=== PATIENT | male | born 1990 ===

== ENCOUNTER 2017-09-20 18:45 | Inpatient (IN) | payer MEDICAID ==
[2017-09-20] MEDS ORDERED: Vancomycin 1gm in NS 250ml 1 GM/250 ML BAG IVPB STA (19:27)
[2017-09-20] MEDS ORDERED: Piperacill/Tazo 4.5gm in NS 4.5 GM/100 ML BAG IVPB STA (19:27)
[2017-09-20] MEDS ORDERED: Sodium Chloride 0.9% 1,000 ML IV STA ×2 (19:31→20:35)
--- NOTE | 2017-09-20 19:36 | ED PDOC ---
Arrival/HPI - General Chief Complaint: Abnormal Skin Integrity Time Seen by Provider: 09/20/17 19:27 Historian: Patient - History of Present Illness Narrative History of Present Illness (Text): 09/20/17 19:33 This 27 yo male with pmh DM type 1, on Lantus, presents to this ED c/o right 5th toe infection. Patient stated he developed a small wound on his toe x 9 days ago. Patient stated toe wound became infected x 5 days ago. Patient noted today his foot was swollen and redness. Patient denies fever, sob, cp, abdominal pain, streaking erythema, groin pain, recent travel, or abnormal gait. Time/Duration: Other (see hpi) Context: Home Past Medical History - Provider Review Nursing Documentation Reviewed: Yes - Cardiac Hx Cardiac Disorders: No - Pulmonary Hx Respiratory Disorders: No - Neurological Hx Neurological Disorder: No - HEENT Hx HEENT Disorder: No - Renal Hx Renal Disorder: No - Endocrine/Metabolic Hx Endocrine Disorders: Yes Hx Diabetes Mellitus Type 1: Yes - Hematological/Oncological Hx Blood Disorders: No - Integumentary Hx Dermatological Disorder: No - Musculoskeletal/Rheumatological Hx Musculoskeletal Disorders: No - Gastrointestinal Hx Gastrointestinal Disorders: No - Genitourinary/Gynecological Hx Genitourinary Disorders: No - Psychiatric Hx Psychophysiologic Disorder: No Hx Substance Use: No Family/Social History - Physician Review Nursing Documentation Reviewed: Yes Family/Social History: Other (noncontributory) Smoking Status: Never Smoked Hx Alcohol Use: No Hx Substance Use: No Allergies/Home Meds Allergies/Adverse Reactions: Allergies No Known Allergies Allergy (Verified 09/20/17 18:47) Home Medications: Home Meds Medication Instructions Recorded Confirmed Insulin Glargine, Recombina 30 unit SC DAILY 09/20/17 09/20/17 [Lantus] Insulin Glulisine [Apidra] 2 unit SC TID 09/20/17 09/20/17 Review of Systems - Review of Systems Constitutional: Normal. absent: Fatigue, Weight Change, Fevers Eyes: Normal ENT: Normal Respiratory: Normal Cardiovascular: Normal Gastrointestinal: Normal Genitourinary Male: Normal Musculoskeletal: Normal Skin: Ulcer (toe), Cellulitis Neurological: Normal Endocrine: Normal Hemo/Lymphatic: Normal Psychiatric: Normal Physical Exam Vital Signs Temp Pulse Resp BP Pulse Ox 09/20/17 18:47 98.5 F 113 H 17 133/94 H 99 Temperature: Afebrile Blood Pressure: Hypertensive Pulse: Tachycardic Respiratory Rate: Normal Appearance: Positive for: Well-Appearing, Non-Toxic, Comfortable Pain Distress: None Mental Status: Positive for: Alert and Oriented X 3 - Systems Exam Head: Present: Atraumatic, Normocephalic Pupils: Present: PERRL Extroacular Muscles: Present: EOMI Conjunctiva: Present: Normal Mouth: Present: Moist Mucous Membranes Neck: Present: Normal Range of Motion Respiratory/Chest: Present: Clear to Auscultation, Good Air Exchange. No: Respiratory Distress, Accessory Muscle Use Cardiovascular: Present: Regular Rate and Rhythm, Normal S1, S2. No: Murmurs Abdomen: Present: Normal Bowel Sounds. No: Tenderness, Distention, Peritoneal Signs Back: Present: Normal Inspection Upper Extremity: Present: Normal Inspection. No: Cyanosis, Edema Lower Extremity: Present: NORMAL PULSES, Normal ROM, Tenderness, Swelling, Erythema, Temperature Abnormalties, Neurovascularly Intact, Capillary Refill < 2 s, Other ((+) right 5th toe diabetic infected ulcer, with right foot cellulitis and swelling). No: Edema, CALF TENDERNESS Neurological: Present: GCS=15, CN II-XII Intact, Speech Normal, Motor Func Grossly Intact, Normal Sensory Function, Normal Cerebellar Funct, Gait Normal, Memory Normal Skin: Present: Warm, Dry, Normal Color. No: Rashes Lymphatic: No: Inguinal Adenopathy Psychiatric: Present: Alert, Oriented x 3, Normal Insight, Normal Concentration Medical Decision Making ED Course and Treatment: 09/20/17 20:27 Dr. Gomez spoke with district medical examiner regarding patient complain, and admission for cellulitis. 09/20/17 20:40 Dr. Gomez spoke with Dr. Curry regarding cellulitis of right foot, with diabetic ulcer, possible osteomyelitis. Dr. Gomez stated Dr. Curry agreed with plan for admission. Re-evaluation Time: 20:46 Reassessment Condition: Re-examined, Improving,but remains with symptoms - Lab Interpretations Lab Results: 09/20/17 19:58 09/20/17 19:58 Lab Results 09/20/17 19:58: Sodium 138, Chloride 98, Potassium 4.5, Carbon Dioxide 32, Anion Gap 13, BUN 15, Creatinine 0.6 L, Est GFR ( Amer) > 60, Est GFR ( Non-Af Amer) > 60, Random Glucose 360 H*, Calcium 10.3, Phosphorus 3.6, Magnesium 2.0, Total Bilirubin 0.4, AST 20, ALT 32, Alkaline Phosphatase 145 H, Total Protein 7.9, Albumin 4.3, Globulin 3.5, Albumin/Globulin Ratio 1.2 09/20/17 19:58: pO2 29 L, VBG pH 7.34, VBG pCO2 60.0, VBG HCO3 32.4 H, VBG Total CO2 34.2 H, VBG O2 Sat (Calc) 64.7, VBG Base Excess 4.8 H, VBG Potassium 4.5, Sodium 136.0, Chloride 99.0, Glucose 367 H, Lactate 0.7, FiO2 21.0, Venous Blood Potassium 4.5 09/20/17 19:58: PT 10.1, INR 0.89 L, APTT 36.8 H 09/20/17 19:58: WBC 8.7, RBC 4.98, Hgb 14.3, Hct 41.7 L, MCV 83.7, MCH 28.7, MCHC 34.3, RDW 12.4, Plt Count 312, MPV 10.0, Gran % 57.9, Lymph % (Auto) 33.6, [place] % (Auto) 6.0, Eos % (Auto) 1.8, Baso % (Auto) 0.7, Gran # 5.02, Lymph # ( Auto) 2.9, [place] # (Auto) 0.5, Eos # (Auto) 0.2, Baso # (Auto) 0.06, ESR Pending I have reviewed the lab results: Yes Interpretation: Abnormal lab values (hyperglycemia.) - RAD Interpretation Narrative RAD Interpretations (Text): 09/20/17 20:46 Foot x-rays: soft tissue swelling. No Fx. or FB. no lytic bone lesion Radiology Orders: 09/20/17 19:32 FOOT RIGHT 5TH DIGIT (TOE) [RAD] Stat - Medication Orders Current Medication Orders: Sodium Chloride (Sodium Chloride 0.9%) 1,000 mls @ 999 mls/hr IV .Q1H1M STA Stop: 09/20/17 21:35 Discontinued Medications Sodium Chloride (Sodium Chloride 0.9%) 1,000 mls @ 999 mls/hr IV .Q1H1M STA Stop: 09/20/17 20:31 Last Admin: 09/20/17 20:01 Dose: 999 mls/hr eMAR Start Stop Document 09/20/17 20:01 AD (Rec: 09/20/17 20:01 AD [id number]) Intravenous Solution Start Date 09/20/17 Start Time 20:01 Vancomycin HCl (Vancomycin 1gm) 1 gm in 250 mls @ 167 mls/hr IVPB STAT STA PRN Reason: Protocol Stop: 09/20/17 20:56 Piperacillin Sod/Tazobactam Sod (Zosyn 4.5 Gm In Ns 100ml) 4.5 gm in 100 mls @ 200 mls/hr IVPB STAT STA PRN Reason: Protocol Stop: 09/20/17 19:56 Last Admin: 09/20/17 19:57 Dose: 200 mls/hr eMAR Start Stop Document 09/20/17 19:57 AD (Rec: 09/20/17 20:01 AD [id number]) Intravenous Solution Start Date 09/20/17 Start Time 20:01 Disposition/Present on Arrival - Present on Arrival Any Indicators Present on Arrival: No History of DVT/PE: No History of Uncontrolled Diabetes: Yes Urinary Catheter: No History of Decub. Ulcer: No History Surgical Site Infection Following: None - Disposition Have Diagnosis and Disposition been Completed?: Yes Diagnosis: Diabetic ulcer of toe of right foot, Cellulitis in diabetic foot Disposition: HOSPITALIZED Disposition Time: 20:48 Patient Plan: Admission Patient Problems: Current Active Problems Problem Status Onset Cellulitis in diabetic foot Acute Diabetic ulcer of toe of right foot Acute Condition: STABLE
[2017-09-20 20:10] LABS: BASO # 0.06 K/mm3 (0.0-2.0); BASO % 0.7 % (0.0-3.0); EOS # 0.2 (0.0-0.7); EOS % 1.8 % (1.5-5.0); GRAN # 5.02 (1.4-6.5); GRAN % 57.9 % (50.0-68.0); HEMOGLOBIN 14.3 g/dL (14.0-18.0); LYMPH # 2.9 (1.2-3.4); LYMPH % 33.6 % (22.0-35.0); MEAN CELL VOLUME 83.7 fl (80.0-105.0); MEAN CORPUSCULAR HEMOGLOBIN 28.7 pg (25.0-35.0); MEAN CORPUSCULAR HGB CONC 34.3 g/dl (31.0-37.0); MONO # 0.5 (0.1-0.6); RBC 4.98 10^6/uL (3.5-6.1); RED CELL DISTRIBUTION WIDTH 12.4 % (11.5-14.5); WHITE BLOOD COUNT 8.7 10^3/ul (4.5-11.0)
[2017-09-20 20:12] LABS: VENOUS BLOOD GAS BASE EXCESS 4.8 mmol/L (0.0-2.0); VENOUS BLOOD GAS PO2 29 mm/Hg (30-55); VENOUS BLOOD PH 7.34 (7.32-7.43)
[2017-09-20 20:23] LABS: INR 0.89 (0.93-1.08); PARTIAL THROMBOPLASTIN TIME 36.8 Seconds (25.1-36.5); PROTHROMBIN TIME 10.1 SECONDS (9.4-12.5)
[2017-09-20 20:30] LABS: ALB/GLOB RATIO 1.2 (1.1-1.8); ALBUMIN 4.3 g/dL (3.0-4.8); ALT/SGPT 32 U/L (7-56); AST/SGOT 20 U/L (17-59); BLOOD UREA NITROGEN 15 mg/dL (7-21); CALCIUM 10.3 mg/dL (8.4-10.5); GFR AFRICAN-AMERICAN > 60; GFR NON-AFRICAN AMERICAN > 60
[2017-09-20] MEDS ORDERED: Sodium Chloride 0.9% 1,000 ML IV SCH (21:15)
[2017-09-20] MEDS ORDERED: Insulin Regular 1 UNITS/0.01 ML ML SC STA (21:19)
[2017-09-20] MEDS: Insulin Lispro (humaLOG) MEDIUM Coverage SC SCH (23:38)
--- NOTE | 2017-09-20 23:50 | CP.PCM.HP ---
<Bishop Angel - Last Filed: 09/21/17 00:29> History of Present Illness - History of Present Illness History of Present Illness: Bishop Angel PGY1 H&P Note for Hospitalist Service cc: R 5th toe ulcer Mr. Smith is a 27yo M with a PMH of DM1 who presents to ED with a swollen and tender right 5th toe x5 days. Translation was provided by ED staff. 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 He is complaining of tenderness and tingling in the leg but denies any numbness. He denies fevers/chills, chest pain, shortness of breath, immobility, abdominal pain, groin pain. 12-pt ROS was reviewed and is otherwise unremarkable. 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 Present on Admission - Present on Admission Any Indicators Present on Admission: No Review of Systems - Review of Systems All systems: reviewed and no additional remarkable complaints except (as per HPI ) Past Patient History - Past Medical History & Family History Past Medical History?: Yes Past Family History: Reviewed and not pertinent - Past Social History Smoking Status: Never Smoked Alcohol: None Drugs: Denies - CARDIAC Hx Cardiac Disorders: No - PULMONARY Hx Respiratory Disorders: No - NEUROLOGICAL Hx Neurological Disorder: No - HEENT Hx HEENT Problems: No - RENAL Hx Chronic Kidney Disease: No - ENDOCRINE/METABOLIC Hx Endocrine Disorders: Yes Hx Diabetes Mellitus Type 1: Yes - HEMATOLOGICAL/ONCOLOGICAL Hx Blood Disorders: No - INTEGUMENTARY Hx Dermatological Problems: No - MUSCULOSKELETAL/RHEUMATOLOGICAL Hx Musculoskeletal Disorders: No - GASTROINTESTINAL Hx Gastrointestinal Disorders: No - GENITOURINARY/GYNECOLOGICAL Hx Genitourinary Disorders: No - PSYCHIATRIC Hx Psychophysiologic Disorder: No Hx Substance Use: No - SURGICAL HISTORY Hx Surgeries: No Meds Allergies/Adverse Reactions: Allergies Allergy/AdvReac Type Severity Reaction Status Date / Time No Known Allergies Allergy Verified 09/20/17 18:47 Physical Exam - Constitutional Appears: Well, Non-toxic, No Acute Distress - Head Exam Head Exam: ATRAUMATIC, NORMAL INSPECTION - Eye Exam Eye Exam: EOMI, Normal appearance, PERRL - ENT Exam ENT Exam: Mucous Membranes Moist - Neck Exam Neck exam: Positive for: Normal Inspection - Respiratory Exam Respiratory Exam: Clear to Auscultation Bilateral, NORMAL BREATHING PATTERN. absent: Rales, Rhonchi, Wheezes - Cardiovascular Exam Cardiovascular Exam: Tachycardia, REGULAR RHYTHM, +S1, +S2 - GI/Abdominal Exam GI & Abdominal Exam: Normal Bowel Sounds, Soft. absent: Distended, Tenderness - Extremities Exam Extremities exam: Positive for: full ROM, pedal edema (right sided 1+), tenderness (RLE), pedal pulses present Additional comments: right toe lateral ulcer no pus noted - Back Exam Back exam: NORMAL INSPECTION - Neurological Exam Neurological exam: Alert, Oriented x3 - Psychiatric Exam Psychiatric exam: Normal Affect, Normal Mood - Skin Skin Exam: Normal Color, Warm Results - Vital Signs Recent Vital Signs: Last Vital Signs Temp 98.5 F 09/20/17 18:47 Pulse 103 H 09/20/17 21:00 Resp 18 09/20/17 21:00 BP 132/82 09/20/17 21:00 Pulse Ox 100 09/20/17 21:00 - Labs Result Diagrams: 09/20/17 19:58 09/20/17 19:58 Assessment & Plan - Assessment and Plan (Free Text) Assessment: 27yo M with a PMH of DM1 who presents to ED with a swollen and tender right 5th toe x5 days, likely 2/2 cellulitis but need to r/o osteomyelitis. Plan: 1. Cellulitis of 5th right toe, r/o osteomyelitis - tachycardia noted but no other SIRS criteria noted - XR done in ED and as read by me shows disruption of normal soft tissue contour - CRP and ESR ordered - blood, wound and urine cultures ordered - 2L NS given, continue @ 100cc/hr - vanc and zosyn given in ED and will be continued - tylenol prn fevers - motrin prn pain - MV, vit C and zinc ordered - ID consulted, recs appreciated - Podiatry consulted, recs appreciated - MRI of R foot ordered - monitor VS, CBC and CMP daily 2. Hx DM1 - hypergylcemia noted - A1C ordered - Levemir 30u daily ordered - ISS ACHS - Accuchecks ACHS - HHD w/ carb consistency PTX/ Heparin for GI/DVT ppx HHD Patient was seen, examined and discussed with attending, Dr. Patricio Angel PGY1 <Isrrael Curry - Last Filed: 09/21/17 02:59> Results - Vital Signs Recent Vital Signs: Last Vital Signs Temp 97.4 F L 09/20/17 23:43 Pulse 101 H 09/20/17 23:43 Resp 20 09/20/17 23:43 BP 145/103 H 09/20/17 23:43 Pulse Ox 100 09/20/17 21:00 - Labs Result Diagrams: 09/20/17 19:58 09/20/17 19:58 Labs: Laboratory Results - last 24 hr 09/20/17 23:25 POC Glucose (mg/dL) 256 H Attending/Attestation - Attestation I have personally seen and examined this patient.: Yes I have fully participated in the care of the patient.: Yes I have reviewed all pertinent clinical information: Yes Notes (Text): 09/21/17 02:58 Patient was seen when he was in 571-02. Agree with history, physical examination ,assessment and plan.
[2017-09-21 00:14] VITALS: RESP 20; BMI 27.4
[2017-09-21] MEDS: Piperacillin/Tazobact 3.375 gm 100 ML IVPB SCH ×2 (00:30→05:39)
[2017-09-21] MEDS ORDERED: Pantoprazole 40 mg EC Tab PO SCH (06:00)
[2017-09-21 07:37] LABS: HEMOGLOBIN 12.2 g/dL (14.0-18.0); MEAN CELL VOLUME 84.2 fl (80.0-105.0); MEAN CORPUSCULAR HEMOGLOBIN 27.9 pg (25.0-35.0); MEAN CORPUSCULAR HGB CONC 33.2 g/dl (31.0-37.0); MEAN PLATELET VOLUME 9.8 fl (7.0-11.0); RBC 4.37 10^6/uL (3.5-6.1); RED CELL DISTRIBUTION WIDTH 12.3 % (11.5-14.5); WHITE BLOOD COUNT 6.6 10^3/ul (4.5-11.0)
[2017-09-21 07:58] LABS: ALBUMIN 3.3 g/dL (3.0-4.8); ALT/SGPT 24 U/L (7-56); AST/SGOT 21 U/L (17-59); BLOOD UREA NITROGEN 11 mg/dL (7-21); CALCIUM 8.9 mg/dL (8.4-10.5); GFR AFRICAN-AMERICAN > 60; GFR NON-AFRICAN AMERICAN > 60
[2017-09-21] MEDS ORDERED: Multivitamin With Minerals Tab PO SCH (08:00)
[2017-09-21] MEDS: Insulin Lispro (humaLOG) MEDIUM Coverage SC SCH ×2 (08:34→13:37)
[2017-09-21 08:38] VITALS: O2SAT 98
--- NOTE | 2017-09-21 09:16 | RAD ---
PROCEDURE: Right Foot Radiographs. HISTORY: pain r/o osteo COMPARISON: None. FINDINGS: BONES: Normal. No fracture. JOINTS: Normal. SOFT TISSUES: Normal. OTHER FINDINGS: None. IMPRESSION: Normal right foot radiographs.
[2017-09-21] MEDS ORDERED: Vancomycin 1gm in NS 250ml 1 GM/250 ML BAG IVPB SCH (10:00)
[2017-09-21] MEDS ORDERED: Insulin Detemir 100 units/ml Vial (Levemir) SC SCH (10:00)
[2017-09-21] MEDS ORDERED: Piperacillin/Tazobact 3.375 gm 100 ML IVPB SCH (12:00)
--- NOTE | 2017-09-21 12:55 | CP.PCM.CON ---
<AllenJanene - Last Filed: 09/21/17 13:50> History of Present Illness - History of Present Illness History of Present Illness: Podiatry Consult Note 27 y/o male with PMHx of diabetes (diagnosed 2008) seen at bedside with attending Dr. Leslie for right foot 5th toe ulceration. Pt states he has noticed the toe swelling up more over the last week. Denies noting any pus drainage from the toe. States he has had diabetes for 9 years and checks his blood sugar once a day. States his sugars run around 100s. Denies any history of podiatric complications or foot ulcerations. Denies any trauma to the right foot. Admits to mild tingling in the lower extremities; denies numbness or burning. PSHx: denies All: NKDA Social Hx: denies EtOH, cigarette or illicit drug use Meds: Insulin Lantus Review of Systems - Review of Systems All systems: reviewed and no additional remarkable complaints except (per HPI) Past Patient History - Past Medical History & Family History Past Medical History?: Yes Past Family History: Reviewed and not pertinent - Past Social History Smoking Status: Never Smoked Alcohol: None Drugs: Denies - CARDIAC Hx Cardiac Disorders: No - PULMONARY Hx Respiratory Disorders: No - NEUROLOGICAL Hx Neurological Disorder: No - HEENT Hx HEENT Problems: No - RENAL Hx Chronic Kidney Disease: No - ENDOCRINE/METABOLIC Hx Endocrine Disorders: Yes Hx Diabetes Mellitus Type 1: Yes - HEMATOLOGICAL/ONCOLOGICAL Hx Blood Disorders: No - INTEGUMENTARY Hx Dermatological Problems: No - MUSCULOSKELETAL/RHEUMATOLOGICAL Hx Musculoskeletal Disorders: No - GASTROINTESTINAL Hx Gastrointestinal Disorders: No - GENITOURINARY/GYNECOLOGICAL Hx Genitourinary Disorders: No - PSYCHIATRIC Hx Psychophysiologic Disorder: No Hx Substance Use: No - SURGICAL HISTORY Hx Surgeries: No Meds Allergies/Adverse Reactions: Allergies Allergy/AdvReac Type Severity Reaction Status Date / Time No Known Allergies Allergy Verified 09/20/17 18:47 - Medications Medications: Current Medications Acetaminophen (Tylenol 325mg Tab) 650 mg PO Q4 PRN PRN Reason: Fever >100.4 F Ascorbic Acid (Vitamin C 500 Mg Tab) 500 mg PO DAILY [facility] Last Admin: 09/21/17 10:01 Dose: 500 mg Heparin Sodium (Porcine) (Heparin) 5,000 units SC Q12 MIKAYLA PRN Reason: Protocol Last Admin: 09/21/17 09:59 Dose: 5,000 units Sodium Chloride (Sodium Chloride 0.9%) 1,000 mls @ 100 mls/hr IV .Q10H [facility] Last Admin: 09/21/17 01:33 Dose: 100 mls/hr Vancomycin HCl (Vancomycin 1gm) 1 gm in 250 mls @ 167 mls/hr IVPB Q12 MIKAYLA PRN Reason: Protocol Last Admin: 09/21/17 10:01 Dose: 167 mls/hr Piperacillin Sod/Tazobactam Sod (Zosyn 3.375 In Ns 100ml) 100 mls @ 200 mls/hr IVPB Q6 MIKAYLA PRN Reason: Protocol Stop: 09/28/17 12:01 Ibuprofen (Motrin Tab) 400 mg PO Q6H PRN PRN Reason: Pain, Mild (1-3) Insulin Detemir (Levemir) 30 unit SC DAILY [facility] Last Admin: 09/21/17 10:00 Dose: 30 unit Insulin Human Lispro (Humalog Med) 0 units SC ACHS [facility] PRN Reason: Protocol Last Admin: 09/21/17 08:34 Dose: 3 units Multivitamins/Minerals (Therapeutic-M Tab) 1 tab PO 0800 [facility] Last Admin: 09/21/17 10:01 Dose: 1 tab Pantoprazole Sodium (Protonix Ec Tab) 40 mg PO 0600 [facility] Last Admin: 09/21/17 05:40 Dose: 40 mg Zinc Sulfate (Zinc Sulfate 220 Mg Cap) 220 mg PO DAILY [facility] Last Admin: 09/21/17 10:02 Dose: 220 mg Physical Exam - Constitutional Appears: Well, Non-toxic, No Acute Distress - Extremities Exam Additional comments: Lower extremity focused examination: Vasc: DP/PT pulses palpable 2/4 B/L. Temperature gradient warm to cool. CFT < 3 sec x 9 digits; unable to assess to right foot 5th digit due to edema with ulceration. Localized edema noted to right foot 5th toe Derm: Circular 0.7cm diameter ulceration noted to dorsum of right foot 5th digit with mixed fibrogranular wound base. Nohemy wound erythema noted. No malodor , no purulence expressed, no fluctuance. Neuro: Protective sensation mildly diminished Ortho: No tenderness to palpation of right foot 5th toe at ulceration site - Neurological Exam Neurological exam: Alert, Oriented x3 - Psychiatric Exam Psychiatric exam: Normal Affect, Normal Mood Results - Vital Signs Recent Vital Signs: Last Vital Signs Temp 97.9 F 09/21/17 07:30 Pulse 103 H 09/21/17 07:30 Resp 20 09/21/17 07:30 BP 145/97 H 09/21/17 07:30 Pulse Ox 98 09/21/17 07:30 - Labs Result Diagrams: 09/21/17 06:30 09/21/17 06:30 Labs: Laboratory Results - last 24 hr 09/20/17 09/21/17 09/21/17 23:25 06:30 06:30 WBC 6.6 D RBC 4.37 Hgb 12.2 L D Hct 36.8 L MCV 84.2 MCH 27.9 MCHC 33.2 RDW 12.3 Plt Count 271 MPV 9.8 Sodium 136 Potassium 3.7 Chloride 101 Carbon Dioxide 29 Anion Gap 10 BUN 11 Creatinine 0.6 L Est GFR ( Amer) > 60 Est GFR (Non-Af Amer) > 60 POC Glucose (mg/dL) 256 H Random Glucose 252 H Calcium 8.9 Total Bilirubin 0.5 AST 21 ALT 24 Alkaline Phosphatase 104 Total Protein 6.5 Albumin 3.3 Globulin 3.2 Albumin/Globulin Ratio 1.0 L 09/21/17 06:33 WBC RBC Hgb Hct MCV MCH MCHC RDW Plt Count MPV Sodium Potassium Chloride Carbon Dioxide Anion Gap BUN Creatinine Est GFR ( Amer) Est GFR (Non-Af Amer) POC Glucose (mg/dL) 238 H Random Glucose Calcium Total Bilirubin AST ALT Alkaline Phosphatase Total Protein Albumin Globulin Albumin/Globulin Ratio Assessment & Plan - Assessment and Plan (Free Text) Assessment: 27 y/o diabetic male with right foot diabetic ulcer to 5th toe Plan: Pt seen and evaluated with attending Dr. Leslie Labs and vitals reviewed- afebrile, WBC 6.6, ESR 36 X-rays of R foot are WNL, no acute osseous findings MRI of RLE (+) for marrow edema in all phalanges of right foot 5th toe; probably osteomyelitis of right foot 5th toe Wound cleansed with saline and dressed with xeroform and DSD Pt allowed PWB to R heel at this time; advised not to bear weight or put pressure down on right forefoot Discussed with patient MRI results, giving him option of 6 weeks of IV abx vs surgical intervention Pt to consider options and make final decision over the weekend Pt added on for OR on Sunday 7:30am for right foot 5th digit amputation Podiatry will continue to follow patient while in house Thank you for this consult <Mario Leslie - Last Filed: 09/21/17 15:05> Meds - Medications Medications: Current Medications Acetaminophen (Tylenol 325mg Tab) 650 mg PO Q4 PRN PRN Reason: Fever >100.4 F Ascorbic Acid (Vitamin C 500 Mg Tab) 500 mg PO DAILY [facility] Last Admin: 09/21/17 10:01 Dose: 500 mg Heparin Sodium (Porcine) (Heparin) 5,000 units SC Q12 MIKAYLA PRN Reason: Protocol Last Admin: 09/21/17 09:59 Dose: 5,000 units Sodium Chloride (Sodium Chloride 0.9%) 1,000 mls @ 100 mls/hr IV .Q10H [facility] Last Admin: 09/21/17 01:33 Dose: 100 mls/hr Vancomycin HCl (Vancomycin 1gm) 1 gm in 250 mls @ 167 mls/hr IVPB Q12 MIKAYLA PRN Reason: Protocol Last Admin: 09/21/17 10:01 Dose: 167 mls/hr Piperacillin Sod/Tazobactam Sod (Zosyn 3.375 In Ns 100ml) 100 mls @ 200 mls/hr IVPB Q6 MIKAYLA PRN Reason: Protocol Stop: 09/28/17 12:01 Last Admin: 09/21/17 13:39 Dose: 200 mls/hr Ibuprofen (Motrin Tab) 400 mg PO Q6H PRN PRN Reason: Pain, Mild (1-3) Insulin Detemir (Levemir) 30 unit SC DAILY [facility] Last Admin: 09/21/17 10:00 Dose: 30 unit Insulin Human Lispro (Humalog Med) 0 units SC ACHS [facility] PRN Reason: Protocol Last Admin: 09/21/17 13:37 Dose: Not Given Multivitamins/Minerals (Therapeutic-M Tab) 1 tab PO 0800 [facility] Last Admin: 09/21/17 10:01 Dose: 1 tab Pantoprazole Sodium (Protonix Ec Tab) 40 mg PO 0600 [facility] Last Admin: 09/21/17 05:40 Dose: 40 mg Zinc Sulfate (Zinc Sulfate 220 Mg Cap) 220 mg PO DAILY [facility] Last Admin: 09/21/17 10:02 Dose: 220 mg Results - Vital Signs Recent Vital Signs: Last Vital Signs Temp 97.9 F 09/21/17 07:30 Pulse 103 H 09/21/17 07:30 Resp 20 09/21/17 07:30 BP 145/97 H 09/21/17 07:30 Pulse Ox 98 09/21/17 07:30 - Labs Result Diagrams: 09/21/17 06:30 09/21/17 06:30 Labs: Laboratory Results - last 24 hr 09/20/17 09/21/17 09/21/17 23:25 06:30 06:30 WBC 6.6 D RBC 4.37 Hgb 12.2 L D Hct 36.8 L MCV 84.2 MCH 27.9 MCHC 33.2 RDW 12.3 Plt Count 271 MPV 9.8 Sodium 136 Potassium 3.7 Chloride 101 Carbon Dioxide 29 Anion Gap 10 BUN 11 Creatinine 0.6 L Est GFR ( Amer) > 60 Est GFR (Non-Af Amer) > 60 POC Glucose (mg/dL) 256 H Random Glucose 252 H Calcium 8.9 Total Bilirubin 0.5 AST 21 ALT 24 Alkaline Phosphatase 104 Total Protein 6.5 Albumin 3.3 Globulin 3.2 Albumin/Globulin Ratio 1.0 L 09/21/17 06:33 WBC RBC Hgb Hct MCV MCH MCHC RDW Plt Count MPV Sodium Potassium Chloride Carbon Dioxide Anion Gap BUN Creatinine Est GFR ( Amer) Est GFR (Non-Af Amer) POC Glucose (mg/dL) 238 H Random Glucose Calcium Total Bilirubin AST ALT Alkaline Phosphatase Total Protein Albumin Globulin Albumin/Globulin Ratio Attending/Attestation - Attestation I have personally seen and examined this patient.: Yes I have fully participated in the care of the patient.: Yes I have reviewed all pertinent clinical information: Yes
--- NOTE | 2017-09-21 13:05 | MRI ---
PROCEDURE: MRI of the right foot without contrast HISTORY: r/o osteomyelitis of 5th toe COMPARISON: TECHNIQUE: MRI of the right foot was performed in multiple planes using multiple pulse sequences. FINDINGS: There is marrow edema in the 5th toe involving the proximal middle and distal phalanx. The finding is suspicious for osteomyelitis. There is also surrounding soft tissue swelling and subcutaneous edema. There is a large amount of subcutaneous edema over the dorsum of the foot IMPRESSION: Probable osteomyelitis of the 5th toe
--- NOTE | 2017-09-21 13:19 | CP.PCM.PN ---
<WinifredLeon Rae - Last Filed: 09/21/17 13:11> Subjective - Date & Time of Evaluation Date of Evaluation: 09/21/17 Time of Evaluation: 13:11 - Subjective Subjective: Medicine progress note: Dr. Connelly Patient seen and examined at bedside. Ms. Haleigh RAMOS kindly providing translation at bedside. No new complaints at this time. Patient denies significant pain. Objective - Vital Signs/Intake and Output Vital Signs (last 24 hours): Temp Pulse Resp BP Pulse Ox 97.9 F 103 H 20 145/97 H 98 09/21/17 07:30 09/21/17 07:30 09/21/17 07:30 09/21/17 07:30 09/21/17 07:30 Intake and Output: 09/21/17 09/21/17 06:59 18:59 Intake Total 0 Output Total 0 Balance 0 - Medications Medications: Current Medications Acetaminophen (Tylenol 325mg Tab) 650 mg PO Q4 PRN PRN Reason: Fever >100.4 F Ascorbic Acid (Vitamin C 500 Mg Tab) 500 mg PO DAILY [facility] Last Admin: 09/21/17 10:01 Dose: 500 mg Heparin Sodium (Porcine) (Heparin) 5,000 units SC Q12 MIKAYLA PRN Reason: Protocol Last Admin: 09/21/17 09:59 Dose: 5,000 units Sodium Chloride (Sodium Chloride 0.9%) 1,000 mls @ 100 mls/hr IV .Q10H [facility] Last Admin: 09/21/17 01:33 Dose: 100 mls/hr Vancomycin HCl (Vancomycin 1gm) 1 gm in 250 mls @ 167 mls/hr IVPB Q12 MIKAYLA PRN Reason: Protocol Last Admin: 09/21/17 10:01 Dose: 167 mls/hr Piperacillin Sod/Tazobactam Sod (Zosyn 3.375 In Ns 100ml) 100 mls @ 200 mls/hr IVPB Q6 MIKAYLA PRN Reason: Protocol Stop: 09/28/17 12:01 Ibuprofen (Motrin Tab) 400 mg PO Q6H PRN PRN Reason: Pain, Mild (1-3) Insulin Detemir (Levemir) 30 unit SC DAILY [facility] Last Admin: 09/21/17 10:00 Dose: 30 unit Insulin Human Lispro (Humalog Med) 0 units SC ACHS MIKAYLA PRN Reason: Protocol Last Admin: 09/21/17 08:34 Dose: 3 units Multivitamins/Minerals (Therapeutic-M Tab) 1 tab PO 0800 [facility] Last Admin: 09/21/17 10:01 Dose: 1 tab Pantoprazole Sodium (Protonix Ec Tab) 40 mg PO 0600 [facility] Last Admin: 09/21/17 05:40 Dose: 40 mg Zinc Sulfate (Zinc Sulfate 220 Mg Cap) 220 mg PO DAILY [facility] Last Admin: 09/21/17 10:02 Dose: 220 mg - Labs Labs: 09/21/17 06:30 09/21/17 06:30 PT 10.1 SECONDS (9.4-12.5) 09/20/17 19:58 INR 0.89 (0.93-1.08) L 09/20/17 19:58 APTT 36.8 Seconds (25.1-36.5) H 09/20/17 19:58 - Constitutional Appears: Well - Head Exam Head Exam: ATRAUMATIC, NORMAL INSPECTION, NORMOCEPHALIC - Eye Exam Eye Exam: EOMI, Normal appearance, PERRL Pupil Exam: NORMAL ACCOMODATION, PERRL - ENT Exam ENT Exam: Mucous Membranes Moist, Normal Exam - Neck Exam Neck Exam: Full ROM, Normal Inspection. absent: Lymphadenopathy - Respiratory Exam Respiratory Exam: Clear to Ausculation Bilateral, NORMAL BREATHING PATTERN - Cardiovascular Exam Cardiovascular Exam: REGULAR RHYTHM, +S1, +S2. absent: Murmur - GI/Abdominal Exam GI & Abdominal Exam: Soft, Normal Bowel Sounds. absent: Tenderness - Extremities Exam Extremities Exam: Full ROM, Normal Capillary Refill, Normal Inspection. absent : Joint Swelling, Pedal Edema - Back Exam Back Exam: NORMAL INSPECTION, vertebral tenderness - Neurological Exam Neurological Exam: Alert, Awake, CN II-XII Intact, Normal Gait, Oriented x3 - Psychiatric Exam Psychiatric exam: Normal Affect, Normal Mood - Skin Skin Exam: Dry, Intact, Normal Color, Warm Assessment and Plan - Assessment and Plan (Free Text) Assessment: 27yo M with a PMH of DM1 who presents to ED with a swollen and tender right 5th toe x5 days, likely 2/2 cellulitis but need to r/o osteomyelitis. Plan: Cellulitis of 5th right toe, r/o osteomyelitis - tachycardia noted but no other SIRS criteria noted - Foot XR done in ED: normal reading - CRP and ESR ordered: ESR elevated - blood, wound and urine cultures ordered - 2L NS given, continue @ 100cc/hr - vanc and zosyn given in ED and will be continued - tylenol prn fevers, motrin prn pain - MultiVitamin, vit C and zinc ordered - ID consulted, recommendations appreciated - Podiatry consulted, recommendations appreciated Wound cleaned with saline and dressed with xeroform and DSD; patient advised no weight bearing - MRI of R foot: Probable osteomyelitis - Monitor Vitals, CBC and CMP daily Diabetes Mellitus - A1C: 14.4 - Levemir 30u daily ordered - ISS ACHS - Accuchecks ACHS - Heart Healthy Diet w/ carb consistency GI/DVT Prophylaxis - Heparin/Protonix <RangasaKallie beníteza - Last Filed: 09/21/17 16:27> Objective - Vital Signs/Intake and Output Vital Signs (last 24 hours): Temp Pulse Resp BP Pulse Ox 97 F L 108 H 20 150/108 H 98 09/21/17 14:00 09/21/17 14:00 09/21/17 14:00 09/21/17 14:00 09/21/17 14:00 Intake and Output: 09/21/17 09/21/17 06:59 18:59 Intake Total 0 900 Output Total 0 Balance 0 900 - Labs Labs: 09/21/17 06:30 09/21/17 06:30 PT 10.1 SECONDS (9.4-12.5) 09/20/17 19:58 INR 0.89 (0.93-1.08) L 09/20/17 19:58 APTT 36.8 Seconds (25.1-36.5) H 09/20/17 19:58 Attending/Attestation - Attestation I have personally seen and examined this patient.: Yes I have fully participated in the care of the patient.: Yes I have reviewed all pertinent clinical information, including history, physical exam and plan: Yes Notes (Text): 09/21/17 16:25 attending note; Patient seen and examined with resident. Translation by patient's nurse. patient is a 27-year-old male with a past medical history of type 1 diabetes is admitted with right lower leg swelling after injury. MRI showed osteomyelitis of the fifth toe. Podiatry evaluation appreciated. Continue IV anti-biotics with vancomycin and Zosyn. ID evaluation requested. Diabetes; continue insulin. Dietary education given. Monitor fingerstick closely. The diagnosis, treatment option discussed with patient in detail.
--- NOTE | 2017-09-21 14:15 | CP.PCM.CON ---
History of Present Illness - History of Present Illness History of Present Illness: 27 year old male with PMH of DM type 1 came in [place] [facility] complaining of pain and swelling of the right 5th toe since 5-6 days ago. 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 He denies specifically scratching his foot on something, denies animal contacts, no soaking his feet in water, no walking barefoot, no nausea or vomiting, no chest pain, no fever or chills, no abdominal pain, no SOB, no cough or colds, no headache or dizziness, no diarrhea, no dysuria. MRI was done which shows probable osteomyelitis of the 5th digit. Infectious diseases consult is requested to further evaluate and manage. Review of Systems - Review of Systems All systems: reviewed and no additional remarkable complaints except (as per HPI ) Past Patient History - Past Medical History & Family History Past Medical History?: Yes Past Family History: Reviewed and not pertinent - Past Social History Smoking Status: Never Smoked Alcohol: None Drugs: Denies - CARDIAC Hx Cardiac Disorders: No - PULMONARY Hx Respiratory Disorders: No - NEUROLOGICAL Hx Neurological Disorder: No - HEENT Hx HEENT Problems: No - RENAL Hx Chronic Kidney Disease: No - ENDOCRINE/METABOLIC Hx Endocrine Disorders: Yes Hx Diabetes Mellitus Type 1: Yes - HEMATOLOGICAL/ONCOLOGICAL Hx Blood Disorders: No - INTEGUMENTARY Hx Dermatological Problems: No - MUSCULOSKELETAL/RHEUMATOLOGICAL Hx Musculoskeletal Disorders: No - GASTROINTESTINAL Hx Gastrointestinal Disorders: No - GENITOURINARY/GYNECOLOGICAL Hx Genitourinary Disorders: No - PSYCHIATRIC Hx Psychophysiologic Disorder: No Hx Substance Use: No - SURGICAL HISTORY Hx Surgeries: No Meds Allergies/Adverse Reactions: Allergies Allergy/AdvReac Type Severity Reaction Status Date / Time No Known Allergies Allergy Verified 09/20/17 18:47 - Medications Medications: Current Medications Acetaminophen (Tylenol 325mg Tab) 650 mg PO Q4 PRN PRN Reason: Fever >100.4 F Ascorbic Acid (Vitamin C 500 Mg Tab) 500 mg PO DAILY [facility] Heparin Sodium (Porcine) (Heparin) 5,000 units SC Q12 MIKAYLA PRN Reason: Protocol Last Admin: 09/20/17 23:34 Dose: 5,000 units Sodium Chloride (Sodium Chloride 0.9%) 1,000 mls @ 100 mls/hr IV .Q10H [facility] Last Admin: 09/21/17 01:33 Dose: 100 mls/hr Vancomycin HCl (Vancomycin 1gm) 1 gm in 250 mls @ 167 mls/hr IVPB Q12 MIKAYLA PRN Reason: Protocol Piperacillin Sod/Tazobactam Sod (Zosyn 3.375 In Ns 100ml) 100 mls @ 200 mls/hr IVPB Q6 MIKAYLA PRN Reason: Protocol Stop: 09/28/17 12:01 Ibuprofen (Motrin Tab) 400 mg PO Q6H PRN PRN Reason: Pain, Mild (1-3) Insulin Detemir (Levemir) 30 unit SC DAILY [facility] Insulin Human Lispro (Humalog Med) 0 units SC ACHS MIKAYLA PRN Reason: Protocol Last Admin: 09/20/17 23:38 Dose: Not Given Multivitamins/Minerals (Therapeutic-M Tab) 1 tab PO 0800 MIKAYLA Pantoprazole Sodium (Protonix Ec Tab) 40 mg PO 0600 [facility] Last Admin: 09/21/17 05:40 Dose: 40 mg Zinc Sulfate (Zinc Sulfate 220 Mg Cap) 220 mg PO DAILY [facility] Physical Exam - Constitutional Appears: Non-toxic - Head Exam Head Exam: NORMAL INSPECTION - ENT Exam ENT Exam: Mucous Membranes Moist - Neck Exam Neck exam: Negative for: Meningismus - Respiratory Exam Respiratory Exam: absent: Rales, Rhonchi - Cardiovascular Exam Cardiovascular Exam: +S1, +S2 - GI/Abdominal Exam GI & Abdominal Exam: Soft. absent: Tenderness - Extremities Exam Additional comments: right foot with dressings in place Results - Vital Signs Recent Vital Signs: Last Vital Signs Temp 97.4 F L 09/20/17 23:43 Pulse 101 H 09/20/17 23:43 Resp 20 09/20/17 23:43 BP 145/103 H 09/20/17 23:43 Pulse Ox 100 09/20/17 21:00 - Labs Result Diagrams: 09/21/17 06:30 09/21/17 06:30 Labs: Laboratory Results - last 24 hr 09/20/17 23:25 POC Glucose (mg/dL) 256 H Assessment & Plan - Assessment and Plan (Free Text) Plan: Assessment Right fifth toe osteomyelitis with cellulitis DM type 1 Plan Started Vancomycin and Zosyn pending blood cx; reviewed foot MRI; follow up further plans of Podiatry - if no amputation done, will need 4-6 weeks of antibiotics will monitor clinically
--- NOTE | 2017-09-21 15:09 | CP.PCM.DIS ---
Provider - Provider Date of Admission: 09/20/17 20:44 Attending physician: Amilcar Connelly MD Hospital Course - Lab Results Lab Results: Most Recent Lab Values WBC 6.6 10^3/ul (4.5-11.0) D 09/21/17 06:30 RBC 4.37 10^6/uL (3.5-6.1) 09/21/17 06:30 Hgb 12.2 g/dL (14.0-18.0) L D 09/21/17 06:30 Hct 36.8 % (42.0-52.0) L 09/21/17 06:30 MCV 84.2 fl (80.0-105.0) 09/21/17 06:30 MCH 27.9 pg (25.0-35.0) 09/21/17 06:30 MCHC 33.2 g/dl (31.0-37.0) 09/21/17 06:30 RDW 12.3 % (11.5-14.5) 09/21/17 06:30 Plt Count 271 10^3/uL (120.0-450.0) 09/21/17 06:30 MPV 9.8 fl (7.0-11.0) 09/21/17 06:30 Gran % 57.9 % (50.0-68.0) 09/20/17 19:58 Lymph % (Auto) 33.6 % (22.0-35.0) 09/20/17 19:58 [place] % (Auto) 6.0 % (1.0-6.0) 09/20/17 19:58 Eos % (Auto) 1.8 % (1.5-5.0) 09/20/17 19:58 Baso % (Auto) 0.7 % (0.0-3.0) 09/20/17 19:58 Gran # 5.02 (1.4-6.5) 09/20/17 19:58 Lymph # (Auto) 2.9 (1.2-3.4) 09/20/17 19:58 [place] # (Auto) 0.5 (0.1-0.6) 09/20/17 19:58 Eos # (Auto) 0.2 (0.0-0.7) 09/20/17 19:58 Baso # (Auto) 0.06 K/mm3 (0.0-2.0) 09/20/17 19:58 ESR 36 mm/hr (0.0-15.0) H 09/20/17 19:58 PT 10.1 SECONDS (9.4-12.5) 09/20/17 19:58 INR 0.89 (0.93-1.08) L 09/20/17 19:58 APTT 36.8 Seconds (25.1-36.5) H 09/20/17 19:58 pO2 29 mm/Hg (30-55) L 09/20/17 19:58 VBG pH 7.34 (7.32-7.43) 09/20/17 19:58 VBG pCO2 60.0 (40-60) 09/20/17 19:58 VBG HCO3 32.4 mmol/l (21-28) H 09/20/17 19:58 VBG Total CO2 34.2 mmol.L (22-28) H 09/20/17 19:58 VBG O2 Sat (Calc) 64.7 % (40-65) 09/20/17 19:58 VBG Base Excess 4.8 mmol/L (0.0-2.0) H 09/20/17 19:58 VBG Potassium 4.5 mmol/L (3.6-5.2) 09/20/17 19:58 Sodium 136.0 mmol/L (132-148) 09/20/17 19:58 Chloride 99.0 mmol/L (98-107) 09/20/17 19:58 Glucose 367 mg/dl (75-110) H 09/20/17 19:58 Lactate 0.7 mmol/L (0.7-2.1) 09/20/17 19:58 FiO2 21.0 % 09/20/17 19:58 Sodium 136 mmol/L (132-148) 09/21/17 06:30 Potassium 3.7 mmol/L (3.6-5.0) 09/21/17 06:30 Chloride 101 mmol/L (98-107) 09/21/17 06:30 Carbon Dioxide 29 mmol/L (21-33) 09/21/17 06:30 Anion Gap 10 (10-20) 09/21/17 06:30 BUN 11 mg/dL (7-21) 09/21/17 06:30 Creatinine 0.6 mg/dl (0.8-1.5) L 09/21/17 06:30 Est GFR ( Amer) > 60 09/21/17 06:30 Est GFR (Non-Af Amer) > 60 09/21/17 06:30 POC Glucose (mg/dL) 238 mg/dL (65-110) H 09/21/17 06:33 Random Glucose 252 mg/dL (70-110) H 09/21/17 06:30 Hemoglobin A1c 14.4 % (4.2-6.5) H 09/20/17 19:58 Calcium 8.9 mg/dL (8.4-10.5) 09/21/17 06:30 Phosphorus 3.6 mg/dL (2.5-4.5) 09/20/17 19:58 Magnesium 2.0 mg/dL (1.7-2.2) 09/20/17 19:58 Total Bilirubin 0.5 mg/dL (0.2-1.3) 09/21/17 06:30 AST 21 U/L (17-59) 09/21/17 06:30 ALT 24 U/L (7-56) 09/21/17 06:30 Alkaline Phosphatase 104 U/L (38-126) 09/21/17 06:30 C-React Prot High Sens > 15.00 mg/L (1.00-3.00) H 09/20/17 19:58 Total Protein 6.5 g/dL (5.8-8.3) 09/21/17 06:30 Albumin 3.3 g/dL (3.0-4.8) 09/21/17 06:30 Globulin 3.2 gm/dL 09/21/17 06:30 Albumin/Globulin Ratio 1.0 (1.1-1.8) L 09/21/17 06:30 Venous Blood Potassium 4.5 mmol/L (3.6-5.2) 09/20/17 19:58 Discharge Exam - Head Exam Head Exam: NORMAL INSPECTION Discharge Plan - Follow Up Plan Condition: STABLE Disposition: HOME/ ROUTINE
[2017-09-21 15:25] VITALS: BP 150/108; PULSE 108; TEMP 97
== END 2017-09-21 15:46 | disposition home or self-care (01) | DRG 295 ==
LOC: ED 18:45 → ERH 20:44 → 5RSO 21:47
PROVIDERS: ADMIT Internal Medicine; ATTEND Internal Medicine
DX: E10.69 Type 1 diabetes mellitus with other specified complication (principal); M86.8X7 Other osteomyelitis, ankle and foot; E10.621 Type 1 diabetes mellitus with foot ulcer; L03.115 Cellulitis of right lower limb; L97.519 Non-pressure chronic ulcer of other part of right foot with unspecified severity; Z79.4 Long term (current) use of insulin; B95.61 Methicillin susceptible Staphylococcus aureus infection as the cause of diseases classified elsewhere; B95.1 Streptococcus, group B, as the cause of diseases classified elsewhere